=== PATIENT | male | born 2000 | race Caucasian/White ===

== ENCOUNTER 2024-09-25 17:42 | Emergency (ER) | payer OTHER ==
[~2024-09-25] VITALS: Ht 170.2 cm; Wt 99.8 kg
[2024-09-25 19:58] VITALS: PULSE 57; RESP 16; TEMP 98.2; O2SAT 100
== END 2024-09-25 19:59 | disposition home or self-care (01) ==
LOC: ER 17:50
DX: S50.01XA Contusion of right elbow, initial encounter (principal); S70.01XA Contusion of right hip, initial encounter; V49.49XA Driver injured in collision with other motor vehicles in traffic accident, initial encounter; Y92.488 Other paved roadways as the place of occurrence of the external cause
CPT/HCPCS: 99283